=== PATIENT | male | born 1950 | race Two or more races ===

== ENCOUNTER → 2019-10-09 | Day surgery (SDC) | payer OTHER ==
[2019-10-06 10:14] LABS: Basophils # (auto) 0 uL; Eosinophils # (auto) 0.3 uL; Eosinophils % (auto) 6.8 % (0.0-7.0); Hematocrit 32.6 % (41.0-53.0); Hemoglobin 10.4 g/dL (13.5-17.5); Lymphocytes # (auto) 1.2 uL; Lymphocytes % (auto) 26.1 % (10.0-50.0); Mean Corpuscular Hemoglobin 28.3 pg (28.0-32.0); Mean Corpuscular Hgb Conc. 31.8 g/dL (32.0-36.0); Mean Corpuscular Volume 88.9 fL (80.0-100.0); Monocytes # (auto) 0.5 uL; Monocytes % (auto) 10.7 % (0.0-12.0); Neutrophils # (auto) 2.6 uL; Neutrophils % (auto) 55.4 % (37.0-80.0); Platelet Count (auto) 276 10^3/uL (140-450); Red Blood Cells 3.67 10^6/uL (4.5-5.90); Red Cell Distribution Width 17.6 % (11.8-14.3); White Blood Cell 4.7 10^3/uL (4.4-10.8)
[2019-10-06 10:37] LABS: INR 1.01 (0.9-1.15); Partial Thromboplastin Time 26.5 sec (23.64-32.05)
[~2019-10-09] VITALS: Ht 167.6 cm; Wt 74.8 kg
[~2019-10-09] MED LIST: BENA20TA14 PO; LIDOCAINE VISCOUS 2% 15ML UD ONE; NIFE30TA76 PO; OMEP20TA PO; SODIUM CHLORIDE LOCK 10 ML ONE; TAMS0.4C36 PO; diphenhdrAMINE HCL 50 MG/1 ML VL ONE
[2019-10-09] MEDS: fentaNYL CITRATE 100 MCG/2 ML VL ONE ×2 (09:54→09:56)
[2019-10-09] MEDS: MIDAZOLAM HCL 5 MG/ML-1ML VIAL ONE ×2 (09:54→09:56)
[2019-10-09 10:34] VITALS: BP 112/61
== END | disposition home or self-care (01) ==
LOC: SUR 08:46
PROVIDERS: ATTEND Internal Medicine Gastroenterology
DX: K92.1 Melena (principal); K29.50 Unspecified chronic gastritis without bleeding; Z79.899 Other long term (current) drug therapy
CPT/HCPCS: 36415; 43239; 85025; 85610; 85730; 88305; 88342; J2250; J3010; J7030